=== PATIENT | female | born 1940 | race Caucasian/White ===

== ENCOUNTER 2018-02-11 17:54 | Emergency (ER) | payer OTHER ==
[~2018-02-11] VITALS: Ht 149.9 cm; Wt 62.1 kg
[2018-02-11 18:18] VITALS: BP 154/87
--- NOTE | 2018-02-11 18:40 | NUR ---
77F BIB FAMILY C/O RIGHT LOWER EXTREMITY--KNEE AND BELOW X 2 WEEKS. NOTABLE REDNESS TIB/FIB AREA; WARMTH TO TOUCH. PT DENIES INJURY/TRAUMA OR LONG CAR TRAVEL/PLANE TRAVEL RECENTLY; PT DENIES ANY SOB OR CHEST PAIN. PT IS AOX4. GCS=15. RR ARE EVEN AND UNLABORED. VSS. AWAITING ER MD DONALDSON. WILL CONTINUE TO MONITOR.
--- NOTE | 2018-02-11 19:16 | NUR ---
REPORT RECEIVED FROM LALITA YIP
--- NOTE | 2018-02-11 19:17 | NUR ---
Pt report given to Sera CELIS. Transfer of care at this time.
--- NOTE | 2018-02-11 19:35 | NUR ---
TALKED WITH PT AND DAUGHTER. RT LOWER LEG, WARM TO TOUCH AND RED. DAUGHTER STATES IT HAS BEEN BEEN LIKE THIS FOR TWO WEEKS AND ITS PAINFUL FOR PT TO WALK ON.
--- NOTE | 2018-02-11 19:53 | NUR ---
Dr. Potter evaluated patient at bedside.
[2018-02-11] MEDS ORDERED: NACL 0.9% 500 ML IV SCH (20:27)
[2018-02-11] MEDS ORDERED: ceFAZolin 1,000 MG in DEXT 5% MINI-BAG PLUS 50 ML IV ONE (20:30)
[2018-02-11] MEDS ORDERED: ACETAMINOPHEN EXTRA STRENGTH 500 MG TAB PO ONE (20:30)
[2018-02-11] MEDS ORDERED: ceFAZolin 1,000 MG VIAL ONE (20:45)
[2018-02-11 21:20] LABS: BASOPHILS # (AUTO) 0.1 K/uL (0.00-0.22); BASOPHILS % (AUTO) 0.7 % (0.0-2.0); EOSINOPHILS # (AUTO) 0.2 K/uL (0-0.4); EOSINOPHILS % (AUTO) 2.9 % (0.0-4.0); HEMATOCRIT 34.1 % (36-48); HEMOGLOBIN 10.7 g/dL (12.0-16.0); LYMPHOCYTES % (AUTO) 24.2 % (20.5-51.1); MEAN CORPUSCULAR HEMOGLOBIN 24 pg (27-31); MEAN CORPUSCULAR HGB CONC 31 g/dL (33-37); MEAN CORPUSCULAR VOLUME 74.7 fL (80-94); MONOCYTES # (AUTO) 0.4 K/uL (0.8-1.0); MONOCYTES % (AUTO) 5.5 % (1.7-9.3); NEUTROPHILS # (AUTO) 5.4 K/uL (1.8-7.7); NEUTROPHILS % (AUTO) 66.7 % (42.2-75.2); PLATELET COUNT (AUTO) 358 K/uL (140-450); RED BLOOD CELL COUNT(AUTO) 4.56 MIL/uL (4.20-5.40); RED CELL DISTRIBUTION WIDTH 13.9 % (11.6-13.7); WHITE BLOOD COUNT (AUTO) 8.2 K/uL (4.8-10.8)
--- NOTE | 2018-02-11 21:20 | NUR ---
ULTRASOUND AT BEDSIDE
[2018-02-11 21:22] LABS: APPEARANCE,URINE CLEAR (CLEAR); BILIRUBIN,URINE NEGATIVE (NEGATIVE); BLOOD, URINE TRACE-I (NEGATIVE); LEUKOCYTE ESTERASE ,URINE NEGATIVE (NEGATIVE); NITRITE, URINE NEGATIVE (NEGATIVE); UGLUCOSE NEGATIVE (NEGATIVE)
[2018-02-11 21:23] LABS: COLOR,URINE STRAW (YELLOW)
[2018-02-11 21:33] LABS: ANION GAP 11.8 (8-16); CARBON DIOXIDE 28.1 mmol/L (21-32); CHLORIDE 108 mmol/L (98-107); CREATININE 0.8 mg/dL (0.6-1.3); GLUCOSE 96 mg/dL (74-106); POTASSIUM 3.9 mmol/L (3.5-5.1); SODIUM SERUM 144 mmol/L (136-145); UREA NITROGEN, BLOOD 11 mg/dL (7-18)
[2018-02-11 21:39] LABS: ALBUMIN 3.3 g/dL (3.4-5.0); ASPARTATE AMINOTRANSFERASE 17 U/L (15-37); TOTAL BILIRUBIN 0.3 mg/dL (0.0-1.0)
[2018-02-11 22:56] LABS: RBC,URINE 0-5 (RARE) /HPF (0-5); WBC,URINE 0-5 (RARE) /HPF (0-5)
[2018-02-11 23:35] VITALS: BP 157/74
--- NOTE | 2018-02-11 23:52 | NUR ---
Patient discharged with v/s stable. Written and verbal after care instructions given and explained. Patient alert, oriented and verbalized understanding of instructions. Ambulatory with steady gait. All questions addressed prior to discharge. ID band removed. Patient advised to follow up with PMD. Rx of Keflex, naproxen, Acetaminophen were given. Patient educated on indication of medication including possible reaction and side effects. Opportunity to ask questions provided and answered.
== END 2018-02-11 23:52 | disposition home or self-care (01) ==
LOC: MED 17:54
DX: M71.22 Synovial cyst of popliteal space [Baker], left knee (principal); M19.90 Unspecified osteoarthritis, unspecified site; L03.116 Cellulitis of left lower limb; K21.9 Gastro-esophageal reflux disease without esophagitis
CPT/HCPCS: 36415; 80053; 81001; 85025; 87040; 93971; 96365; 99285; J0690; J7030; J7060; Q0092